=== PATIENT | female | born 2000 ===

== ENCOUNTER 2020-11-30 14:23 | Outpatient (CLI) | payer OTHER ==
[2021-01-13] MEDS ORDERED: PEPCID AC20 MG (19:42)
[2021-01-13] MEDS ORDERED: ZOFRAN4 MG PO (23:08)
[2021-01-13] MEDS ORDERED: MACROBID 100 M100 MG PO (23:08)
== END 2020-11-30 14:39 | disposition home or self-care (01) ==
LOC: RAD 14:23
PROVIDERS: ATTEND Orthopaedic Surgery
DX: M79.641 Pain in right hand (principal)

== ENCOUNTER → 2021-01-13 | Emergency (ER) | payer OTHER ==
[~2021-01-13] VITALS: Ht 165.1 cm; Wt 56.7 kg
[~2021-01-13] MED LIST: MACROBID 100 M100 MG PO; PEPCID AC20 MG; ZOFRAN4 MG PO
== END | disposition home or self-care (01) ==
LOC: ER 19:28
DX: N39.0 Urinary tract infection, site not specified (principal)